=== PATIENT | female | born 1960 | race Caucasian/White ===

== ENCOUNTER 2017-04-08 07:25 | Day surgery (SDC) | payer BC ==
[2017-04-07 10:57] VITALS: BMI 28.0
[2017-04-08] MEDS ORDERED: Propofol 10 mg/ml Inj (20 ML) ONE (08:51)
[2017-04-08] MEDS ORDERED: Midazolam 2 MG/2 ML VIAL ONE (08:51)
[2017-04-08] MEDS ORDERED: Lactated Ringer's 1,000 ML IV ONE (09:00)
[2017-04-08] MEDS ORDERED: Lactated Ringer's 500 ML IV SCH (09:30)
[2017-04-08 10:37] VITALS: RESP 15; TEMP 97
[2017-04-08 11:16] VITALS: BP 134/58; PULSE 52; O2SAT 100
== END 2017-04-08 11:09 | disposition home or self-care (01) ==
LOC: C.ENDO 07:25
PROVIDERS: ATTEND Internal Medicine Gastroenterology
DX: D50.9 Iron deficiency anemia, unspecified (principal); K21.0 Gastro-esophageal reflux disease with esophagitis; K44.9 Diaphragmatic hernia without obstruction or gangrene; K29.70 Gastritis, unspecified, without bleeding; K64.1 Second degree hemorrhoids; K57.30 Diverticulosis of large intestine without perforation or abscess without bleeding; K63.5 Polyp of colon; D12.2 Benign neoplasm of ascending colon
CPT/HCPCS: 43239; 45380; 45385; 82948; 88305; J2250; J2704; J7120

== ENCOUNTER 2018-08-20 09:45 | Emergency (ER) | payer BC, MEDICAID, OTHER ==
[2018-08-20 09:45] VITALS: BMI 28.0
[2018-08-20 10:02] VITALS: BP 133/64; PULSE 63; RESP 18; TEMP 98.1; O2SAT 100
--- NOTE | 2018-08-20 10:49 | C.PDOC ---
History Of Present Illness 58 year old female presents to the emergency department with complaints of right elbow and right hand pain since yesterday. 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 Patient is unable to describe how she landed, she states she cannot remember. Patient states that after falling she was able to finish her shift, but today she cannot move her right arm much, and has difficulty moving it up to her mouth to eat. Patient states that she iced the areas and took Advil for pain yesterday. She denies any LOC, head injury, weakness, numbness and tingling. Chief Complaint (Nursing): Upper Extremity Problem/Injury History Per: Patient History/Exam Limitations: no limitations Onset/Duration Of Symptoms: Days (1) Current Symptoms Are (Timing): Still Present Quality: "Pain" Severity: Moderate Exacerbating Factor(s): Movement Recent travel outside of the [place]: No Past Medical History Reviewed: Historical Data, Nursing Documentation, Vital Signs Vital Signs: Last Vital Signs Temp 98.1 F 08/20/18 09:59 Pulse 63 08/20/18 09:59 Resp 18 08/20/18 09:59 BP 133/64 08/20/18 09:59 Pulse Ox 100 08/20/18 09:59 Primary Care Provider: Non [facility] Provider, - Medical History PMH: Anemia (IRON DEFICENCY ANEMIA), HTN Denies: Fractures, Chronic Kidney Disease, Sleep Apnea, TIA 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 Constitutional: Negative for: Fever, Chills, Weakness Cardiovascular: Negative for: Chest Pain Respiratory: Negative for: Cough, Shortness of Breath Gastrointestinal: Negative for: Nausea, Vomiting, Abdominal Pain, Diarrhea Musculoskeletal: Positive for: Arm Pain (right elbow), Hand Pain (right). Negative for: Neck Pain Skin: Negative for: Rash, Bruising Neurological: Negative for: Weakness, Numbness, Headache, Dizziness Physical Exam - Physical Exam Appears: Non-toxic, No Acute Distress Skin: Normal Color, Warm, Dry, No Ecchymosis Head: Atraumatic, Normacephalic Eye(s): bilateral: Normal Inspection, PERRL Nose: No Discharge Oral Mucosa: Moist Neck: Normal ROM, Supple Cardiovascular: Rhythm Regular Respiratory: Normal Breath Sounds, No Wheezing Extremity: No Normal ROM (limited ROM due to pain at the right elbow), Tenderness (to the right elbow and volar aspect of the right hand), Capillary Refill (<2 seconds), No Deformity, Swelling (to the right elbow, volar aspect of right hand) Pulses: Right Brachial: Normal, Left Radial: Normal, Right Radial: Normal, Left Femoral: Normal Neurological/Psych: Oriented x3, Normal Speech, Normal Cognition, Normal Sensation Gait: Steady ED Course And Treatment O2 Sat by Pulse Oximetry: 100 (RA) Pulse Ox Interpretation: Normal - Other Rad XR Right Elbow X-Ray: Viewed By Me, Read By Radiologist Interpretation: Date of service: 08/20/2018. PROCEDURE: Radiographs of the right elbow. HISTORY: s/p fall. COMPARISON: No prior. TECHNIQUE: 3 views obtained. FINDINGS: BONES: No acute fracture identified. Small enthesophyte noted of the medial epicondyle humerus. Small triceps tendon enthesophyte. JOINTS: No dislocation seen. Bony articulations appear maintained. SOFT TISSUES: Unremarkable. JOINT EFFUSION: There is elevation of the anterior fat pad, possibly due to joint effusion.. OTHER FINDINGS: None. IMPRESSION: No acute fracture or dislocation identified. Elevation of the anterior fat pad, suggestive of joint effusion. Occult fracture cannot be excluded. Consider follow-up radiographs in 7-10 days. XR Right Wrist X-Ray: Viewed By Me, Read By Radiologist Interpretation: Date of service: 08/20/2018. PROCEDURE: Right Wrist Radiographs. . HISTORY: s/p fall. COMPARISON: None. TECHNIQUE: 4 views obtained. FINDINGS: BONES: No fracture identified. JOINTS: No dislocation seen. Bony articulations appear maintained. SOFT TISSUES: Unremarkable. OTHER FINDINGS: None. IMPRESSION: No fracture or dislocation identified. Medical Decision Making Medical Decision Making: Plan: XR Right Elbow and XR Right Wrist- Elevation of the anterior fat pad, suggestive of joint effusion in elbow; unremarkable wrist Splint applied and patient advised to follow up with Ortho Patient verbalizes understanding and is in agreement with plan. Patient is stable for discharge. Disposition Counseled Patient/Family Regarding: Studies Performed, Diagnosis, Need For Followup, Rx Given - Disposition Referrals: Orthopedic Clinic at [Outside] David Pickens III, MD [Staff Provider] - Disposition: HOME/ ROUTINE Disposition Time: 12:12 Condition: IMPROVED Additional Instructions: Continue Naproxen twice a day Rest, Ice, Compression, and Elevation Follow up with patient resource specialist if pain persist- MRI may be ordered Return to the ED if symptoms worsen Prescriptions: Naproxen [Naprosyn] 500 mg PO BID #30 tablet Instructions: Wrist Sprain (DC), Elbow Sprain (DC) Forms: [employer] (Gambian) - Clinical Impression Clinical Impression: Right elbow pain, Right wrist pain, Sprain - PA / MATERIALS HANDLING COORDINATOR / Resident Statement MD/DO has reviewed & agrees with the documentation as recorded. - Scribe Statement The provider has reviewed the documentation as recorded by the Scribe (Andrea Francisco) All medical record entries made by the Scribe were at my direction and pe rsonally dictated by me. I have reviewed the chart and agree that the record accurately reflects my personal performance of the history, physical exam, medical decision making, and the department course for this patient. I have also personally directed, reviewed, and agree with the discharge instructions and disposition.
--- NOTE | 2018-08-20 12:34 | RAD ---
Date of service: 08/20/2018 PROCEDURE: Radiographs of the right elbow. HISTORY: s/p fall COMPARISON: No prior. TECHNIQUE: 3 views obtained. FINDINGS: BONES: No acute fracture identified. Small enthesophyte noted of the medial epicondyle humerus. Small triceps tendon enthesophyte. JOINTS: No dislocation seen. Bony articulations appear maintained. SOFT TISSUES: Unremarkable JOINT EFFUSION: There is elevation of the anterior fat pad, possibly due to joint effusion.. OTHER FINDINGS: None. IMPRESSION: No acute fracture or dislocation identified. Elevation of the anterior fat pad, suggestive of joint effusion. Occult fracture cannot be excluded. Consider follow-up radiographs in 7-10 days.
--- NOTE | 2018-08-20 13:13 | RAD ---
Date of service: 08/20/2018 PROCEDURE: Right Wrist Radiographs. HISTORY: s/p fall COMPARISON: None. TECHNIQUE: 4 views obtained. FINDINGS: BONES: No fracture identified. JOINTS: No dislocation seen. Bony articulations appear maintained. SOFT TISSUES: Unremarkable OTHER FINDINGS: None. IMPRESSION: No fracture or dislocation identified.
== END 2018-08-20 12:24 | disposition home or self-care (01) ==
LOC: C.ER 09:45
DX: M25.521 Pain in right elbow (principal); M25.531 Pain in right wrist; T14.8XXA Other injury of unspecified body region, initial encounter; W01.0XXA Fall on same level from slipping, tripping and stumbling without subsequent striking against object, initial encounter; Y93.01 Activity, walking, marching and hiking; Y92.512 Supermarket, store or market as the place of occurrence of the external cause; Y99.0 Civilian activity done for income or pay; I10 Essential (primary) hypertension

== ENCOUNTER 2018-08-23 10:54 | Emergency (ER) | payer OTHER ==
[2018-08-23 10:54] VITALS: BMI 28.0
[2018-08-23 11:06] VITALS: BP 150/70; PULSE 57; RESP 20; TEMP 98.4; O2SAT 100
--- NOTE | 2018-08-23 11:31 | C.PDOC ---
History Of Present Illness 58 year old female presents to ED with complaint of pain to the right forearm. Patient was last seen on 08/20 after she had a fall that caused elbow and hand pain. Patient had posterior elbow splint applied. She reports removing the splint because she felt itchy. Patient denies numbness or weakness. Time Seen by Provider: 08/23/18 11:11 Chief Complaint (Nursing): Upper Extremity Problem/Injury History Per: Patient History/Exam Limitations: no limitations Onset/Duration Of Symptoms: Days (3) Current Symptoms Are (Timing): Still Present Quality: "Pain" Past Medical History Reviewed: Historical Data, Nursing Documentation, Vital Signs Vital Signs: Last Vital Signs Temp 98.4 F 08/23/18 11:03 Pulse 57 L 08/23/18 11:03 Resp 20 08/23/18 11:03 BP 150/70 08/23/18 11:03 Pulse Ox 100 08/23/18 11:03 Primary Care Provider: Non [facility] Provider, - Medical History PMH: Anemia (IRON DEFICENCY ANEMIA), HTN Denies: Fractures, Chronic Kidney Disease, Sleep Apnea, TIA Surgical History: CABG (X3(MAY 2015)) Family History: States: Unknown Family Hx - Social History Hx Tobacco Use: No Hx Alcohol Use: No Hx Substance Use: No - Immunization History Hx Tetanus Toxoid Vaccination: No Hx Influenza Vaccination: No Hx Pneumococcal Vaccination: No Review Of Systems Constitutional: Negative for: Fever, Chills, Weakness Musculoskeletal: Positive for: Arm Pain (right forearm and wrist pain ) Skin: Negative for: Rash Neurological: Negative for: Weakness, Numbness Physical Exam - Physical Exam Appears: Well, Non-toxic, No Acute Distress Skin: Normal Color, Warm, Dry Head: Atraumatic, Normacephalic Extremity: Normal ROM, Tenderness (right elbow tenderness with pronation and supination ), Capillary Refill <2 Sec (<2 seconds), No Deformity, No Swelling, Other (pain to the right elbow and right thenar eminence) Pulses: Left Radial: Normal, Right Radial: Normal Neurological/Psych: Oriented x3, Normal Speech, Normal Cognition, Normal Motor, Normal Sensation, Normal Reflexes ED Course And Treatment O2 Sat by Pulse Oximetry: 100 (in RA) Pulse Ox Interpretation: Normal Medical Decision Making Medical Decision Making: Impression: 58 year old female presents to ED with complaint of pain to the right forearm. Initial Plan: * Tylenol PO Splint from Thursday reapplied. pt advised to keep on, given copies of xray results and advised to f/u with ortho Disposition Counseled Patient/Family Regarding: Diagnosis, Need For Followup, Rx Given - Disposition Referrals: David Pickens III, MD [Staff Provider] - Disposition: HOME/ ROUTINE Disposition Time: 12:07 Condition: GOOD Additional Instructions: Wear splint. Follow up with Dr Pickens, Call for appointment. Take naproxen as prescribed. If you have pain in between doses of Naproxen, you can take some T ylenol. . Prescriptions: Acetaminophen [Tylenol 325mg tab] 650 mg PO Q6 #30 tab Forms: General Discharge Instructions, [facility] (Canadian) - Clinical Impression Clinical Impression: Right arm pain - PA / FLOWER CHENILLER / Resident Statement MD/DO has reviewed & agrees with the documentation as recorded. (Eva Ramos) - Scribe Statement The provider has reviewed the documentation as recorded by the Scribe (Eva Ramos) All medical record entries made by the Scribe were at my direction and personally dictated by me. I have reviewed the chart and agree that the record accurately reflects my personal performance of the history, physical exam, medical decision making, and the department course for this patient. I have also personally directed, reviewed, and agree with the discharge instructions and disposition.
== END 2018-08-23 12:28 | disposition home or self-care (01) ==
LOC: C.ER 10:54
DX: M79.631 Pain in right forearm (principal)